=== PATIENT | female | born 1950 | race Caucasian/White ===

== ENCOUNTER → 2018-03-19 | Outpatient (CLI) | payer OTHER ==
--- NOTE | ~2018-03-19 | 2DMMODE ---
[facility] [email or web address] [address] 2 D/M-MODE ECHOCARDIOGRAM Name: HARTMANNALAYNAANNY ALONZO Room #: REG [facility]#: [id number] Admission: 03/19/18 Attend Phys: Alcides Byrne MD Discharge: Date of : 46 Date of Service: 03/19/18 1015 Report #: [id number] THIS REPORT FOR: //name// APPROVED REPORT Study performed: 03/19/2018 09:22:38 EXAM: Comprehensive 2D, Doppler, and color-flow Echocardiogram Patient Location: Out-Patient Room #: Echo lab 1 Status: routine BSA: 1.73 HR: 74 bpm BP: 142/84 mmHg Other Information Study Quality: Adequate Indications Hypertension/HDD Elevated Calcium Score 2D Dimensions RVDd: 30.64 mm LVEF(%): 60.56 (>50%) IVSd: 13.86 (7-11mm) LVOT Diam: 20.72 (18-24mm) LVDd: 34.67 mm PWd: 13.58 (7-11mm) Ascending Ao: 33.75 (22-36mm) LVDs: 23.74 (25-40mm) Aortic Root: 30.44 mm IVC: 14.00 mm Lozada's LVEF: 60.56 % Volumes Left Atrial Volume (Systole) Single Plane 4CH: 36.18 mL Single Plane 2CH: 45.48 mL LA ESV Index: 26.00 mL/m2 Aortic Valve AoV Peak Obi.: 1.31 m/s AO Peak Gr.: 6.91 mmHg LVOT Max P.77 mmHg LVOT Max V: 1.20 m/s RODRIGO Vmax: 3.08 cm2 Mitral Valve E/A Ratio: 0.8 MV Decel. Time: 257.10 ms [facility] [place] [address] 2 D/M-MODE ECHOCARDIOGRAM Name: ALAYNA HARTMANN Room #: REG [facility].#: [id number] Admission: 03/19/18 Attend Phys: Alcides Byrne MD Discharge: Date of : 46 Date of Service: 03/19/18 1015 Report #: [id number] E Max Obi.: 0.89 m/s MV A Obi.: 1.06 m/s MV PHT: 74.56 ms IVRT: 101.50 ms Pulmonary Valve PV Peak Obi.: 0.98 m/s PV Peak Gr.: 3.82 mmHg Pulmonary Vein P Vein S: 0.51 m/s P Vein A: 0.31 m/s P Vein D: 0.32 m/s P Vein A Dur.: 106.1 msec P Vein S/D Ratio: 1.59 Left Ventricle The left ventricle is normal size. Mild concentric left ventricular hypertrophy. The left ventricular systolic function is normal. The left ventricular ejection fraction is within the normal range. LVEF is 55-60%. Grade I - abnormal relaxation pattern. Right Ventricle The right ventricle is normal size. The right ventricular systolic function is normal. Atria The left atrium size is normal. The right atrium size is normal. Aortic Valve The aortic valve is normal in structure. No aortic regurgitation is present. There is no aortic valvular stenosis. Mitral Valve The mitral valve is normal in structure. Trace to mild mitral regurgitation. No evidence of mitral valve stenosis. Tricuspid Valve The tricuspid valve is normal in structure. There is no tricuspid valve regurgitation noted. Pulmonic Valve The pulmonary valve is normal in structure. There is no pulmonic valvular regurgitation. Great Vessels The aortic root is normal in size. IVC is normal in size and collapses >50% with inspiration. [facility] [address] [place] [address] 2 D/M-MODE ECHOCARDIOGRAM Name: HARTMANNALAYNA Room #: REG [facility]#: [id number] Admission: 03/19/18 Attend Phys: Alcides Byrne MD Discharge: Date of : 46 Date of Service: 03/19/18 1015 Report #: [id number] Pericardium There is no pericardial effusion. <Conclusion> The left ventricle is normal size. Mild concentric left ventricular hypertrophy. The left ventricular systolic function is normal. Grade I - abnormal relaxation pattern. The right ventricle is normal size. The left atrium size is normal. The aortic valve is normal in structure. Trace to mild mitral regurgitation. There is no tricuspid valve regurgitation noted. <ELECTRONICALLY SIGNED> By: Alcides Byrne MD 03/19/18 1015 1015 1015 Alcides Byrne MD /INF
== END ==
LOC: NUC 06:42
DX: I10 Essential (primary) hypertension (principal); I51.7 Cardiomegaly; E78.5 Hyperlipidemia, unspecified; R93.1 Abnormal findings on diagnostic imaging of heart and coronary circulation